=== PATIENT | female | born 2000 | race Caucasian/White ===

== ENCOUNTER 2024-01-08 22:58 | Emergency (ER) | payer OTHER, SELFPAY ==
[2024-01-08 23:23] VITALS: BP 123/85; PULSE 65; RESP 20; TEMP 37.2; O2SAT 97; BMI 19.3
[2024-01-08 23:50] LABS: Ur HCG Qualitative* Negative (Negative)
--- NOTE | 2024-01-09 00:13 | ED.GENADULT ---
HPI - General Adult General Chief complaint: Abdominal Pain Stated complaint: Abdominal Pain Time Seen by Provider: 01/08/24 23:58 Source: patient Mode of arrival: ambulatory Limitations: no limitations History of Present Illness HPI narrative: 24-year-old female presents to the emergency department for evaluation of left lower quadrant abdominal pain. No a gravid. Nexplanon for contraception for the last 9 months. Symptoms originally started with intercourse about 30 hours ago. Was accompanied by sharp pain a hand nausea and vomiting initially. Pain did not radiate. Improve somewhat after a few hours. She did feel better this morning but pain gradually returned coming in worsening waves all day. She took 2 ibuprofen about 18 hours ago with some mild temporary improvement of her symptoms but has not repeated her doses. No fever. No vaginal discharge. No hematuria. No trauma or injury. Pain is significantly less severe than previous day. No prior history of kidney stones or ovarian cysts. No unusual vaginal discharge. No prior history of similar symptoms. No prior abdominal surgeries. Reports her past medical history is benign, no major long-term health problems. Only home medication is Nexplanon. Nonsmoker. ROS notable for the abdominal symptoms as described above, otherwise denies times 12 systems. Related Data Home Medications ?Medication ?Instructions ?Recorded ?Confirmed etonogestrel 68 mg subdermal subdermal 01/08/24 implant (Nexplanon) Allergies Allergy/AdvReac Type Severity Reaction Status Date / Time No Known Drug Allergies Allergy Verified 01/08/24 23:26 [facility] Medical History Scoliosis ?M41.9 - Scoliosis, unspecified (ICD-10) Family History Maternal Grandmother Heart disease Breast cancer Diabetes Social History Smoking Status: Current some day smoker Little interest or pleasure in doing things: not at all Feeling down, depressed, or hopeless: not at all service: No Exam Const: Vital Signs, click to edit/add: Vital Signs - 24 hr 01/08/24 23:23 01/09/24 01:11 Temperature 99.0 F Pulse Rate [Left P ulse Oximeter] 65 61 Respiratory Rate 20 16 Blood Pressure [Ri ght Upper Arm] 123/85 118/75 Pulse Oximetry 97 97 Oxygen Delivery Me thod Room Air Room Air Documenting provider has reviewed patient's vital signs: yes Common normals: no apparent distress General appearance: cooperative and well kempt HENMT: Mouth: oral and palatal mucosa normal Eye: Common normals: conjunctivae normal General eye: normal appearance of both eyes Conjunctiva: conjunctiva(e) normal Neck & C-Spine: Common normals: no lymphadenopathy General: normal visual inspection Resp: Common normals: normal respiratory effort, no use of accessory muscles and clear to auscultation bilaterally Effort & inspection: able to speak in complete sentences Auscultation: clear to auscultation bilaterally Cardio: Common normals: regular rate, regular rhythm, S1 normal heart sound, S2 normal heart sound and no murmurs Rate: regular rate Rhythm: regular rhythm Heart sounds: S1 normal and S2 normal GI: Common normals: Normal to inspection, nondistended, normoactive bowel sounds present, soft to palpation, non-tender, no hepatosplenomegaly and no masses Palpation: soft and no hepatosplenomegaly : Common normals: no CVA tenderness Bladder/kidney exam: no CVA tenderness Back & Pelvis: Common normals: no CVA tenderness Extremity: Common normals: normal to inspection and normal capillary refill Psych: Appearance: well kempt Attitude: engaged Activity/motor behavior: appropriate eye contact Insight: insight good Judgement: judgment good Skin: Common normals: no rashes or lesions noted General skin exam: no rashes or lesions noted Course Course ED Course: 24-year-old female with left lower quadrant abdominal pain suspicious for ruptured ovarian cyst versus UVJ stone. Differential diagnosis also including colitis, gynecological issue, pelvic infection, unusual urinary tract infection, musculoskeletal etiology, amongst others. HCG is negative prior to my arrival for my shift. Recommend urinalysis to look for blood that will help determine which type of CT. Will give IV Toradol for pain and typical intra-abdominal labs while we await findings. Reevaluation(s) Time of Reevaluation #1: 01:32 Reevaluation #1: Counseled patient normal lab work. CT not showing any signs of ureteral stone but is showing 2 separate ovarian cysts. The larger simple appearing 1 on the right which is 7 cm and a smaller 3.5 cm dermoid appearing cyst on the left ovary which does have a crescent-shaped area which has likely represented the recent rupture. She continues to have very little pain. Discussed management. We do not have non emergent ultrasound available overnight, it would be about a 7 hour wait for the morning provider and I do not think that she would necessarily need to stay in the emergency department for this, especially as we already have 5 boarding patients due to no inpatient beds available. I do think that she is reliable for follow-up outpatient. I have given her the contact [facility]. She will need to schedule an appointment with Gynecology at her earliest convenience and will need a pelvic ultrasound. Alarm symptoms reviewed that would warrant ED presentation. She verbalized understanding and agreement. Written instructions are provided. Counseled on Tylenol and ibuprofen for pain control. Symptoms should improve quite a bit in a few days. No restrictions on activity but she may have increased pain with intercourse again. We also did discuss the interesting finding of single kidney. She does not participate in any heavy contact sports or this would be problematic. But typical warnings were given. Vital Signs Vital signs: Initial Vital Signs Temperature 99.0 F 01/08/24 23:23 Temperature Source Temporal Artery Scan 01/08/24 23:23 Pulse Rate 65 01/08/24 23:23 Pulse Rhythm Regular 01/08/24 23:23 Respiratory Rate 20 01/08/24 23:23 Blood Pressure 123/85 01/08/24 23:23 Blood Pressure Mean 97 01/08/24 23:23 Blood Pressure Position Sitting 01/08/24 23:23 Pulse Oximetry 97 01/08/24 23:23 Oxygen Delivery Method Room Air 01/08/24 23:23 Vital Signs Temperature 99.0 F 01/08/24 23:23 Pulse Rate 65 01/08/24 23:23 Respiratory Rate 20 01/08/24 23:23 Blood Pressure 123/85 01/08/24 23:23 Pulse Oximetry 97 01/08/24 23:23 Oxygen Delivery Method Room Air 01/08/24 23:23 Temperature 99.0 F 01/08/24 23:23 Pulse Rate 61 01/09/24 01:11 Respiratory Rate 16 01/09/24 01:11 Blood Pressure 118/75 01/09/24 01:11 Pulse Oximetry 97 01/09/24 01:11 Oxygen Delivery Method Room Air 01/09/24 01:11 Medications Administered Medications: Discontinued Medications Generic Name Dose Route Start Last Admin Trade Name Cindy PRN Reason Stop Dose Admin Ketorolac Tromethamine 15 mg 01/09/24 00:11 01/09/24 00:41 Ketorolac 15 Mg/Ml Inj IVP 01/09/24 00:12 15 mg ONCE ONE Administration Ondansetron HCl 4 mg 01/09/24 00:11 01/09/24 00:42 Ondansetron 2 Mg/Ml Inj IVP 01/09/24 00:12 4 mg ONCE ONE Administration Medical Decision Making Lab Data Lab results reviewed: Yes I reviewed the patient's lab results Lab results narrative: Labs reassuring. Labs: Lab Results 01/08/24 01/09/24 01/09/24 Range/Units 23:40 00:10 00:25 WBC 5.44 (4.50-11.00) K/uL RBC 4.62 (4.00-5.20) m/uL Hgb 13.1 (12.0-16.0) gm/dL Hct 38.8 (33.0-51.0) % MCV 84 (80-100) fL MCH 28 (26-34) pg MCHC 34 (32-36) gm/dL RDW Coeff of Ceceila 13.2 (11.5-15.5) % Plt Count 197 (140-440) K/uL Neut % (Auto) 54.2 (42.0-72.0) % Lymph % (Auto) 35.3 (20-44) % [place] % (Auto) 8.6 (0.0-11.0) % Eos % (Auto) 0.7 (0.0-7.0) % Baso % (Auto) 0.6 (0.0-3.0) % Neut # (Auto) 2.95 (1.7-7.0) K/uL Lymph # (Auto) 1.92 (0.90-2.90) K/uL [place] # (Auto) 0.50 (0.00-0.90) K/UL Eos # (Auto) 0.04 (0.00-0.50) K/uL Baso # (Auto) 0.03 (0.00-0.30) K/uL Abs Immat Gran (auto) 0.03 (0.00-0.30) K/uL Imm/Tot Granulo (auto) 0.6 % Sodium 138 (135-149) mmol/L Potassium 3.5 L (3.6-5.1) mmol/L Chloride 105 (96-114) mmol/L Carbon Dioxide 25 (20-32) mmol/L Anion Gap 8 (7-15) mEq/L BUN 17 (5-24) mg/dL Creatinine 0.8 (0.5-1.5) mg/dL Estimated Creat Clear 105.32 Estimated GFR 106 ml/min Glucose 116 H (60-115) mg/dL Calcium 9.5 (8.4-10.6) mg/dL Total Bilirubin 0.3 (0.1-1.5) mg/dL AST 17 (12-35) U/L ALT 11 (4-35) U/L Alkaline Phosphatase 44 (40-150) U/L C-Reactive Protein < 0.5 L (0.5-1.0) mg/dL Total Protein 7.2 (6.0-8.3) g/dL Albumin 4.6 (3.3-5.0) g/dL Lipase 110 (23-300) U/L Urine Color Yellow (Yellow) Urine Appearance Cloudy A (Clear) Urine pH 6.0 (5.0-8.5) Ur Specific [place] 1.025 (1.000-1.030) Urine Protein Negative (Negative) Urine Glucose (UA) Negative (Negative) Urine Ketones Negative (Negative) Urine Blood 2+ A (Negative) Urine Nitrite Negative (Negative) Urine Bilirubin Negative (Negative) Urine Urobilinogen 1.0 (0.2-1.0) Ur Leukocyte Esterase Negative (Negative) Urine HCG, Qual Negative (Negative) Imaging Data CT scan - abdomen: Attestation: I have reviewed the pertinent imaging results. My impression: At least 2 separate ovarian cyst, complex appearing 1 on the left side which looks like it has a small area of recent rupture. Radiologist's impression: IMPRESSION: 1. No urolith or evidence of obstructive uropathy. 2. 3.5 cm left ovarian dermoid with a small crescent of fluid surrounding the cyst. The fluid could be a component of the dermoid or represent a separate follicle/cyst. If there is concern for ovarian torsion, recommend pelvic ultrasound for further characterization. 3. Simple fluid attenuating 6.8 cm cystic lesion in the pelvic cul de sac, possibly a right ovarian cyst. This can be further evaluated with ultrasound during the exam for the above finding. - ADDENDUM ----- Correction: Absent right kidney. The left kidney is unremarkable.? Discharge Plan Discharge Clinical Impression: Ruptured cyst of left ovary, Dermoid cyst of left ovary Instructions: Ruptured Ovarian Cyst (ED) Additional Instructions: As we discussed, all of your lab work looks great. No signs of infection or significant inflammation. All of your organ seem to be functioning well. The CT did not show any signs of kidney stones but did show 2 ovarian cysts. There is a larger simple appearing cyst on your right ovary, it is about 7 cm in size. There is a smaller cyst on your left ovary that appears consistent with a dermoid cyst which is a little bit different type of ovarian cyst and does appear that that 1 has recently leaked. That would certainly explain the pelvic pain that you were having. We do need to get an ultrasound to further characterize both of these cysts. This is best done by a residential treatment counselor. I do not have ultrasound for non emergent things overnight here in the emergency department. Please call the [facility] at [phone] to schedule an appointment at your earliest convenience. For most, the pain does improve after a few more days. It is okay to use Tylenol 1000 mg every 6 hours and or ibuprofen 600 mg every 6 hours for the pain. You may eat and drink normally. You have no restriction on activities but you may notice increased pain with intercourse. If you have severe symptoms, bloody stools, high fever and or persistent vomiting, you should come to an emergency department. Prescriptions: No Action Nexplanon 68 mg implant subdermal Follow Up/Referrals: [facility] [Provider Group] - 2 Days (Needs pelvic ultrasound, ED follow-up for dermoid and bilateral ovarian cyst) Provider,Not a Local [Primary Care Provider] - Stand Alone Forms: [facility] Info Instructions
[2024-01-09 00:31] LABS: Appearance Urine Cloudy (Clear); Bilirubin Urine Negative (Negative); Blood Urine 2+ (Negative); Color Urine Yellow (Yellow); Glucose Urine Negative (Negative); Ketones Urine Negative (Negative); Leukocyte Esterase Urine Negative (Negative); Nitrite Urine Negative (Negative); Protein Urine Negative (Negative); Specific Gravity Urine 1.025 (1.000-1.030)
[2024-01-09 00:32] LABS: Basophils Absolute Auto 0.03 K/uL (0.00-0.30); Basophils Percent Auto 0.6 % (0.0-3.0); Eosinophils Absolute Auto 0.04 K/uL (0.00-0.50); Eosinophils Percent Auto 0.7 % (0.0-7.0); Hematocrit 38.8 % (33.0-51.0); Hemoglobin* 13.1 gm/dL (12.0-16.0); Immature Granulocytes Abs Auto 0.03 K/uL (0.00-0.30); Immature Granulocytes Pct Auto 0.6 %; Lymphocytes Absolute Auto 1.92 K/uL (0.90-2.90); Lymphocytes Percent Auto 35.3 % (20-44); Mean Corpuscular HGB Conc 34 gm/dL (32-36); Mean Corpuscular Hemoglobin 28 pg (26-34); Mean Corpuscular Volume 84 fL (80-100); Monocytes Percent Auto 8.6 % (0.0-11.0); Neutrophils Absolute Auto 2.95 K/uL (1.7-7.0); Neutrophils Percent Auto 54.2 % (42.0-72.0); Platelet Count* 197 K/uL (140-440); RDW Coefficient of Variation % 13.2 % (11.5-15.5); Red Blood Count 4.62 m/uL (4.00-5.20); White Blood Count* 5.44 K/uL (4.50-11.00)
[2024-01-09 00:34] LABS: Slide Review Reflex No
--- NOTE | 2024-01-09 00:39 | CRLHL7_ITS ---
For Patients: As a result of the 21st Century Cures Act, medical imaging exams and procedure reports are released immediately into your electronic medical record. You may view this report before your referring provider. If you have questions, please contact your health care provider. INDICATION: suspect L UVJ stone. TECHNIQUE: CT abdomen and pelvis without contrast. COMPARISON: None. FINDINGS: Lower chest: Unremarkable. Liver: Normal in size and attenuation. No suspicious masses. Gallbladder and bile ducts: No stones or inflammation. No biliary dilatation. Pancreas: Unremarkable. No mass or inflammation. Spleen: Normal in size. No masses. Adrenal glands: Normal in size. No nodules. Kidneys: Normal in size. No suspicious masses, stones, or hydronephrosis. GI tract: Unremarkable. Normal in caliber. No sign of mass or inflammation. Normal appendix. Vasculature: Abdominal aorta is normal in caliber. Lymph nodes: No lymphadenopathy. Peritoneum/Abdominal Wall: Unremarkable. No free air or significant free fluid. Pelvis: 3.5 cm left ovarian dermoid. Small crescentic fluid collection about the dermoid. 6.8 cm cystic lesion in the pelvic cul-de-sac. Bones: Unremarkable for age. IMPRESSION: 1. No urolith or evidence of obstructive uropathy. 2. 3.5 cm left ovarian dermoid with a small crescent of fluid surrounding the cyst. The fluid could be a component of the dermoid or represent a separate follicle/cyst. If there is concern for ovarian torsion, recommend pelvic ultrasound for further characterization. 3. Simple fluid attenuating 6.8 cm cystic lesion in the pelvic cul de sac, possibly a right ovarian cyst. This can be further evaluated with ultrasound during the exam for the above finding. Please note that all CT scans at this facility use dose modulation, iterative reconstruction, and/or weight-based dosing when appropriate to reduce radiation dose to as low as reasonably achievable. Dictated by Abdoulaye Sigala MD @ 01/09/2024 1:16:15 AM (Electronically Signed)
[2024-01-09] MEDS: KETOROLAC 15 MG/ML inj IVP (00:41)
[2024-01-09] MEDS: ONDANSETRON 2 MG/ML inj 4 MG IVP (00:42)
[2024-01-09 00:45] LABS: Albumin* 4.6 g/dL (3.3-5.0); Chloride* 105 mmol/L (96-114); Sodium* 138 mmol/L (135-149)
[2024-01-09 00:46] LABS: Potassium* 3.5 mmol/L (3.6-5.1)
[2024-01-09 00:47] LABS: Creatinine* 0.8 mg/dL (0.5-1.5); Est. Creatinine Clearance* 105.32; Estimated Glomerular Filt Rate 106 ml/min
[2024-01-09 00:48] LABS: Alkaline Phosphatase* 44 U/L (40-150); Anion Gap 8 mEq/L (7-15); Aspartate Amino Transferase* 17 U/L (12-35); Bilirubin Total* 0.3 mg/dL (0.1-1.5); Carbon Dioxide* 25 mmol/L (20-32); Lipase* 110 U/L (23-300); Total Protein* 7.2 g/dL (6.0-8.3)
[2024-01-09 00:49] LABS: Alanine Aminotransferase* 11 U/L (4-35); Blood Urea Nitrogen* 17 mg/dL (5-24); Calcium* 9.5 mg/dL (8.4-10.6); Glucose* 116 mg/dL (60-115)
[2024-01-09 00:52] LABS: C Reactive Protein* < 0.5 mg/dL (0.5-1.0)
[2024-01-09 01:11] VITALS: BP 118/75; PULSE 61; RESP 16; O2SAT 97
--- NOTE | 2024-01-09 01:16 | PC.NURSE ---
assumed care of patient at this time
== END 2024-01-09 01:44 | disposition home or self-care (01) ==
PROVIDERS: Family Medicine; Emergency Provider Family Medicine
DX: N83.292 Other ovarian cyst, left side (principal)
CPT/HCPCS: 36415; 74176; 80053; 81001; 81003; 81025; 83690; 85025; 86140; 96374; 96375; 99284; J1885; J2405

== ENCOUNTER 2024-01-17 14:11 | Outpatient (CLI) | payer OTHER, SELFPAY ==
--- NOTE | 2024-01-17 14:45 | CRLHL7_ITS ---
For Patients: As a result of the Century Cures Act, medical imaging exams and procedure reports are released immediately into your electronic medical record. You may view this report before your referring provider. If you have questions, please contact your health care provider. INDICATION: Benign neoplasm of left ovary. COMPARISON: CT of the abdomen and pelvis from 01/09/2024. FINDINGS: Transvaginal and transabdominal ultrasound examination of the female pelvis was performed. Initial examination is performed with transabdominal technique and transvaginal technique is used for better visualization of the pelvic structures. The uterus is anteverted with no evidence of mass. It measures 8.9 x 4.5 x 4.0 cm. The endometrial lining is mildly increased in thickness at 11 mm, probably related to the patient`s menstrual cycle. The right ovary is again seen to be mildly enlarged by a simple cyst measuring 5.9 x 4.6 x 7.7 centimeters, unchanged in size from the previous study. Where it measured 7.5 x 5.5 centimeters. The ovary measures 6.3 x 5.0 x 8.3 centimeters and has normal color Doppler flow. The left ovary is again seen to have a complex cyst with an echogenic, lobulated nodule, findings transportation services representative of a dermoid. This measures approximately 4.1 x 3.9 x 4.4 centimeters, but it is difficult to differentiate the dermoid from the ovary. The dermoid previously measured 3.7 x 3.1 centimeters. The left ovary is normal in size, measuring 4.1 x 3.9 x 4.4 centimeters and there is normal color Doppler flow. There is no sign of free fluid in the pelvis. IMPRESSION: 1. Dermoid cyst in the left ovary, similar to the appearance on recent CT. Measurements of dermoid cyst size on ultrasound is uncertain, difficulty differentiate the margin of the dermoid from normal ovarian tissue. It measures approximately 4.1 x 3.9 x 4.4 centimeters, slightly increased from the CT measurements. 2. Right ovary is again seen to be enlarged by a simple cyst measuring up to 7.7 centimeters in diameter. 3. Suggest follow-up ultrasound in 6-12 months. 4. Normal appearance of the uterus. Dictated by Vel Jose MD @ 01/18/2024 10:44:12 AM (Electronically Signed)
== END 2024-01-17 14:12 | disposition home or self-care (01) ==
LOC: US 14:13
PROVIDERS: Visit Provider Obstetrics & Gynecology
DX: D27.1 Benign neoplasm of left ovary (principal); N83.201 Unspecified ovarian cyst, right side
CPT/HCPCS: 76830; 76856

== ENCOUNTER 2024-02-23 10:45 | Outpatient (CLI) | payer OTHER, SELFPAY ==
--- NOTE | 2024-02-23 10:45 | CRLHL7_ITS ---
For Patients: As a result of the Century Cures Act, medical imaging exams and procedure reports are released immediately into your electronic medical record. You may view this report before your referring provider. If you have questions, please contact your health care provider. INDICATION: Benign neoplasm of left ovary COMPARISON: 01/17/2024 TECHNIQUE: 2D saavedra scale and color Doppler images were acquired of the pelvis using a transabdominal and transvaginal approach. FINDINGS/IMPRESSION: Sonographic images demonstrate a normal size and smooth outer contour of the uterus. Uterus measures 8.2 cm in length by 4.1 cm in AP diameter by 4.7 cm in transverse dimension. The myometrium has a normal uniform echotexture. The endometrial lining measures 11 mm in composite thickness. The right ovary measures 7.4 x 4.9 x 6.7 cm in size and the left ovary measures 5.3 x 3.6 x 4.0 cm. The ovaries demonstrate normal arterial and venous blood flow on color Doppler analysis. There are no suspicious fluid collections within the cul-de-sac. Simple right ovarian cyst is present measuring 7.1 x 4.0 x 6.6 cm, previously measuring 7.7 x 4.6 x 5.9 cm. Echogenic left ovarian dermoid cyst is present measuring 3.6 x 2.6 x 3.9 cm, previously measuring 4.1 x 3.9 x 4.4 cm. Dictated by Evangelist Healy MD @ 02/23/2024 12:10:39 PM (Electronically Signed)
== END 2024-02-23 10:46 | disposition home or self-care (01) ==
LOC: US 10:46
PROVIDERS: Visit Provider Obstetrics & Gynecology
DX: D27.1 Benign neoplasm of left ovary (principal); N83.291 Other ovarian cyst, right side; N83.202 Unspecified ovarian cyst, left side
CPT/HCPCS: 76830; 76856

== ENCOUNTER 2024-04-06 06:34 | Day surgery (SDC) | payer OTHER, SELFPAY ==
[2024-04-06] VITALS (17 sets, daily range): BP systolic 88–121; BP diastolic 54–75; PULSE 50–70; RESP 16–21; TEMP 36.1–36.6; O2SAT 94–100; BMI 20.3
[2024-04-06] MEDS: 0.9 % SODIUM CHLORIDE 500 ML 500 ML 100 ML IV (07:06)
[2024-04-06] MEDS: SODIUM CHLORIDE 0.9 % (FLUSH) 10 ML SYRINGE IVF (07:06)
[2024-04-06 07:21] LABS: Hemoglobin* 12.9 gm/dL (12.0-16.0)
[2024-04-06 07:24] LABS: Ur HCG Qualitative* Negative (Negative)
[2024-04-06] MEDS: BUPIVACAINE 0.5% 30 ML INJECTION (09:00)
--- NOTE | 2024-04-06 09:52 | P.ANES_ITS ---
Anesthesia Charges Start Date/Time Anesthesia Start Date: 04/06/24 Anesthesia Start Time: 07:50 Stop Date/Time Anesthesia Stop Date: 04/06/24 Anesthesia Stop Time: 10:06 Coding CPT Codes CPT Codes: ANESTH SURG LOWER ABDOMEN - 34405 ([id number]) P1 - NORMAL HEALTHY PATIENT, QK - TESTER EQUIPMENT 2-4 CNCRNT ANES PROC, QX - LANGUAGE ASST [place] W/ MED DIRECTION
--- NOTE | 2024-04-06 09:52 | W.ANESCHARGE ---
Anesthesia Charges Start Date/Time Anesthesia Start Date: 04/06/24 Anesthesia Start Time: 07:50 Stop Date/Time Anesthesia Stop Date: 04/06/24 Anesthesia Stop Time: 10:06 Coding CPT Codes CPT Codes: ANESTH SURG LOWER ABDOMEN - 23371 ([id number]) P1 - NORMAL HEALTHY PATIENT, QK - SHOT POLISHER AND INSPECTOR 2-4 CNCRNT ANES PROC, QX - HEAD CONCIERGE [place] W/ MED DIRECTION
--- NOTE | 2024-04-06 10:08 | P.ANES_ITS ---
Anesthesia Charges Start Date/Time Anesthesia Start Date: 04/06/24 Anesthesia Start Time: 07:50 Stop Date/Time Anesthesia Stop Date: 04/06/24 Anesthesia Stop Time: 10:06 Coding CPT Codes CPT Codes: ANESTH SURG LOWER ABDOMEN - 81986 ([id number]) P1 - NORMAL HEALTHY PATIENT, QK - FLORIST DESIGNER 2-4 CNCRNT ANES PROC, QX - ANIMAL CARE GIVER [place] W/ MED DIRECTION
--- NOTE | 2024-04-06 10:08 | W.ANESCHARGE ---
Anesthesia Charges Start Date/Time Anesthesia Start Date: 04/06/24 Anesthesia Start Time: 07:50 Stop Date/Time Anesthesia Stop Date: 04/06/24 Anesthesia Stop Time: 10:06 Coding CPT Codes CPT Codes: ANESTH SURG LOWER ABDOMEN - 13858 ([id number]) P1 - NORMAL HEALTHY PATIENT, QK - SOLID PLASTERER 2-4 CNCRNT ANES PROC, QX - PRIVATE TUTORS AND TEACHERS [place] W/ MED DIRECTION
[2024-04-06] MEDS: LACTATED RINGERS 500 ML 500 ML 100 ML IV (11:00)
--- NOTE | 2024-04-06 12:15 | P.GYNPRC_ITS ---
Procedure Note Date of procedure: 04/06/24 Will [facility] bill your pro fee for this procedure?: Yes Pre-op diagnosis: Pelvic pain Bilateral adnexal mass Symptomatic right vulvar mass Post-op diagnosis: Left unicornuate uterus Left paratubal cyst Left ovarian cyst Symptomatic right vulvar mass Procedure: Diagnostic laparoscopy, left paratubal cystectomy, left ovarian cystectomy, right vulvar mass excision Anesthesia: GETA Complications: None Surgeon: Fiordaliza Gerard MD Auditor: Jocelynn Bynum Estimated blood loss (mL): 25 IV fluids (mL): 800 Urine Output (mL): 50 Pathology: specimen obtained, sent to pathology Condition: stable Disposition: same day Findings: Left unicornuate uterus Left paratubal cyst Left ovarian cyst Right ovary and tubal remnant in RLQ near the cecum 1cm right vulvar mass Procedure Description: Patient was taken to the operating room with IV running. She was positioned in dorsal lithotomy position with her legs fully supported in [place] stirrups. General anesthesia was administered. She was prepped and draped in the usual sterile fashion. A surgical time out was held to confirm patient and procedure. Hughes catheter was inserted. Speculum was inserted. Cervix was visualized and appears unremarkable, noted to be left-sided within the vaginal canal. Cervix was grasped with a tenaculum on the posterior margin, where a uterine sound could be passed to 7cm without difficulty. The Bringg uterine manipulator was inserted and secured to anterior cervix. Tenaculum removed. A 12 mm infraumbilical incision was made with a scalpel and carried down to the underlying layer of fascia with the hemostat. The fascia was grasped with Jose clamps and elevated, fascial incision made with scalpel. A curved hemostat was utilized to grasp the peritoneum and elevated it, incised with Niraj scissors. A curve was then introduced and utilized to gently stretch fascial incision. The fascia was tagged with 0 vicryl and straights removed. Willingham trocar was introduced to the peritoneal cavity, balloon inflated. Camera inserted and high flow initiated. Pneumoperitoneum was achieved, where careful attention was paid below site of entry - no injury or bleeding noted. Upper abdominal survey was completed, revealing normal anatomy. Patient was put into Trendelenburg, pelvic survey was notable for left unicornuate uterus, left paratubal cyst, left ovarian cyst. The right ovary and tubal remnant could be seen above the pelvic brim in the right lower quadrant, near the cecum. Unremarkable appendix. Three additional port sites were created. The first was in the patient's left lower quadrant, just superomedial to the left ASIS. The second was a hand's breadth superior to and slightly medial to the first. The third was in the patient's right lower quadrant, just superomedial to the right ASIS. All trocars were inserted under direct visualization, where careful attention was paid to avoid the inferior epigastric vessels, superficial skin vasculature and the bowel on entry. Obturator removed, balloon inflated. Attention was first turned to the left paratubal cyst. The cyst was noted to be within the mesosalpinx, where the Ligasure [place] device was utilized to ligate and transect to enter the mesosalpinx. A plane was readily identified between the cyst wall and normal tubal anatomy, where the incision was extended with the Ligasure. Laparoscopic graspers were utilized to secure the cyst wall and gently dissect this off the underlying normal tube and mesosalpinx. During dissection, cyst rupture did occur for clear fluid. This was evacuated with suction pharmacy intake technician. The paratubal cyst was dissected free and removed through the 10mm infraumbilical port. Specimen sent for pathologic evaluation. Hemostasis was noted across the left fallopian tube and mesosalpinx. Attention was then turned to the left ovary, which was noted to be enlarged with an apparent small corpus luteal cyst proximally. There was a larger cyst distally, suspicious for the known dermoid. The ovary was stabilized with laparoscopic graspers and Valleylab spatula was utilized to incise the ovarian stroma overlying the suspected dermoid cyst. A plane was readily apparent between the normal ovarian stroma and underlying cyst, which was developed with gentle blunt dissection. The cyst was stabilized and gently freed from underlying ovarian tissue with gentle traction to peel it away. Cyst rupture occurred during dissection, with return of thickened yellow fluid and hair. All cyst material was immediately evacuated with suction pharmacy intake technician. The cyst was ultimately freed from the ovary and removed through 10mm infraumbilical port. The pelvis was then copiously irrigated and suctioned to remove all cyst fluid and minimize risk of peritonitis. The site of ovarian cystectomy was inspected, made hemostatic with monopolar cautery. Repeat irrigation and suction occurred, until there was no further return of apparent dermoid cyst contents throughout the abdomen/pelvis. Zaira was applied across the left ovarian cyst bed and paratubal cyst bed. Excellent hemostasis was noted. Laparoscopic portion was deemed complete. The balloons of all port sites were deflated, and all ports were removed after pneumoperitoneum was released. The fascia was closed by tying together the two stay sutures on the infraumbilical fascia. The skin of each port site was closed in a subcuticular fashion with 3-0 Monocryl. Surgical glue was applied above this. Attention was then turned to the right vulvar mass. On external visual inspection, no area of fullness or mass could be identified. A very small, mobile, rubbery-like mass could be palpated at the margin of the right labia majora and groin crease. This represented patient-reported site of pain, was confirmed in pre-op prior to proceeding today. The underlying mass was secured, then a 1.5cm incision was created in the overlying skin with a 15 blade. Allis clamps were applied on the lateral skin margins. The underlying mass was grasped with a tissue forceps. The mass was dissected off surrounding tissues with monopolar cautery. Total 1cm of rubbery, fat-like tissue was removed at site of mass and patient-reported symptoms. The deep tissue was closed with interrupted 2-0 vicryl sutures. The skin was closed with 3-0 monocryl in a running, subcuticular fashion. Hughes catheter removed. Patient tolerated procedure well and was taken to recovery area in stable condition. EBL 25 mL, UOP 50 mL, IVF 800 mL. Confirmed specimens sent to pathology including left paratubal cyst, left ovarian cyst and right vulvar m ass.
[2024-04-06] MEDS: OXYCODONE 5 MG TABLET PO (12:43)
== END 2024-04-06 13:05 | disposition home or self-care (01) ==
PROVIDERS: Visit Provider Obstetrics & Gynecology
PROC: (CPT 58662; principal; 2024-04-06 07:45)
DX: R10.2 Pelvic and perineal pain (principal); Q51.4 Unicornate uterus; N83.8 Other noninflammatory disorders of ovary, fallopian tube and broad ligament; N83.292 Other ovarian cyst, left side; N90.7 Vulvar cyst
CPT/HCPCS: 58662; 11422; 12041; 00840; 36415; 81025; 85018; 86850; 86900; 86901; 88305; 88307; A9270; J0330; J0665; J1100; J1630; J1885; J2250; J2405; J2704; J2710; J3010; J3490; J7030; J7120